=== PATIENT | female | born 1980 | race Caucasian/White ===

== ENCOUNTER → 2020-05-24 | Outpatient (CLI) | payer BC | LOC: SJCVCIMAG 08:20 | PROVIDERS: ATTEND Internal Medicine | DX: R00.2 Palpitations (principal); R00.0 Tachycardia, unspecified ==

== ENCOUNTER 2020-12-05 10:09 | Inpatient (IN) | payer BC, OTHER ==
[~2020-12-05] VITALS: Ht 165.1 cm; Wt 51.7 kg
[2020-12-05 10:14] VITALS: BP 129/86
[2020-12-05 10:35] LABS: URINE BILIRUBIN NEGATIVE (Negative); URINE BLOOD NEGATIVE (Negative); URINE CLARITY CLEAR; URINE COLOR YELLOW; URINE GLUCOSE-RANDOM* NEGATIVE (Negative); URINE KETONES NEGATIVE (Negative); URINE LEUKOCYTES-REFLEX TRACE (Negative); URINE NITRITE-REFLEX NEGATIVE (Negative); URINE PROTEIN (DIPSTICK) NEGATIVE (Negative); URINE SPECIFIC GRAVITY <= 1.005 (1.005-1.035); URINE UROBILINOGEN 0.2 E.U./dl (0.2-1.0)
[2020-12-05] MEDS ORDERED: PROTONIX40 M4 PO (10:55)
[2020-12-05] MEDS ORDERED: ALPRAZOLAM XR3 MG PO (10:57)
[2020-12-05] MEDS ORDERED: PLAQUENIL200 MG PO (10:57)
[2020-12-05 11:01] LABS: ABSOLUTE NEUTROPHILS 4.3 thou/uL (1.4-8.2); BASOPHILS 0.4 % (0.0-2.0); EOSINOPHILS 1.1 % (0.0-3.0); HEMATOCRIT 40.3 % (37.0-47.0); HEMOGLOBIN 13.8 gm/dL (12.0-15.0); LYMPHOCYTES 16.3 % (24.0-44.0); MCH 31.5 pg (26.0-34.0); MCHC 34.1 g/dL (28.0-37.0); MCV 92.2 fL (80.0-100.0); MONOCYTES 8.6 % (1.0-8.0); PLATELET COUNT 221 thou/uL (150-400); POLYS 73.6 % (36.0-66.0); RBC 4.37 mil/uL (4.20-5.00); RDW 12.4 % (10.5-14.5); WBC 5.8 thou/uL (4.0-11.0)
[2020-12-05 11:08] LABS: CALCIUM 8.6 mg/dL (8.5-10.1); CREATININE 0.7 mg/dL (0.6-1.0)
[2020-12-05 11:14] LABS: ALBUMIN 3.9 g/dL (3.4-5.0); TOTAL BILIRUBIN 0.5 mg/dL (0.2-1.0); TOTAL PROTEIN 6.7 g/dL (6.4-8.2)
[2020-12-05 17:08] VITALS: BP 108/66
[2020-12-05 17:20] VITALS: BP 111/67
[2020-12-05 18:00] VITALS: BP 106/69
--- NOTE | 2020-12-05 19:28 | NUR ---
PT ADMITED FROM ER. ADMISSION HX AND ASSESSMENT COMPLETED. VSS. NPO AFTER MIDNIGHT FOR POSSIBLE SURGERY IN AM.
[2020-12-05 20:10] VITALS: BP 106/67
[2020-12-06 04:41] LABS: HEMATOCRIT 35.6 % (37.0-47.0); MCH 30.9 pg (26.0-34.0); MCHC 32.9 g/dL (28.0-37.0); RBC 3.79 mil/uL (4.20-5.00); RDW 12.7 % (10.5-14.5); WBC 4.6 thou/uL (4.0-11.0)
[2020-12-06 04:43] LABS: HEMOGLOBIN 11.7 gm/dL (12.0-15.0)
[2020-12-06 05:00] VITALS: BP 106/62
[2020-12-06 05:00] LABS: CALCIUM 7.9 mg/dL (8.5-10.1); CREATININE 0.6 mg/dL (0.6-1.0)
--- NOTE | 2020-12-06 07:55 | NUR ---
NPO SINCE MIDNIGHT FOR A POSSIBLE SURGERY TODAY.UP ADLIB.PAIN WELL CONTROLLED WITH PAIN PILL.IVF INFUSING.POC CONTINUED.
[2020-12-06 12:18] VITALS: BP 90/46
--- NOTE | 2020-12-06 12:53 | NUR ---
Nutrition screening risk identified for possible 2-13 lb wt loss and decreased intake. Admit with abdominal pain, hemorrhagic ovarian cyst and cholecystitis. Had n/v few days prior admit. S/P surgical intervention 12/06 for left oopherectomy and lap anali. Will follow up for timely diet advance with tolerance. Low nutrition risk at this time
--- NOTE | 2020-12-06 18:22 | NUR ---
assumed care 0700. pt to suregery 0800. returned 1230 following lap anali w/L Oophorectomy. VSS stable following procedure. tolerating clear liquids well. desires to advance diet. progressing in nursing plan of care
[2020-12-06 19:13] VITALS: BP 108/62
[2020-12-07 02:26] VITALS: BP 108/62
--- NOTE | 2020-12-07 03:19 | NUR ---
A&OX4, ASSESSMENSTS CHARTED, PAIN MEDS GIVEN WITH PARTIAL RELIEF, LAB SITES AND INCISION SITES ITACT, NO BLEEDING, SLEEPING AT THIS TIME, NO NEEDS, TOLERATING DIET WELL, PROGRESSING WELL TOWARDS POC
[2020-12-07 05:32] VITALS: BP 101/63
--- NOTE | 2020-12-07 06:53 | O ---
[facility] [place] [address] [place] [address] OPERATIVE REPORT Name: KENAN ZARAGOZA Room #: 217-P ADM IN M.R.#: [id number] Admission: 12/05/20 Attend Phys: Mercy Hallman MD Discharge: Date of : 84 Report #: [id number] THIS REPORT FOR: cc: Jhonatan Leon MD, Mark S. MD Farris, Kari C. DO ~ DATE OF SERVICE: 12/06/2020 PREOPERATIVE DIAGNOSES: 1. Abdominal pain. 2. Cholecystitis. 3. Cystic left ovary. POSTOPERATIVE DIAGNOSES: 1. Abdominal pain. 2. Cholecystitis. 3. Cystic left ovary. 4. Torsion of left ovary. OPERATIVE PROCEDURE: Laparoscopic left oophorectomy. SURGEON: Dr. Bella Stern. ANESTHESIA: General. PATHOLOGY: Left ovary. COMPLICATIONS: None. DESCRIPTION OF PROCEDURE: The patient was taken to the operating room by Dr. True Santos due to abdominal pain and cholecystitis. It was noted that the patient has a cystic left ovary; therefore, it was planned that we would join him in the operating room to evaluate the left ovary. The abdomen was entered laparoscopically by Dr. Santos. Please see his dictation for details upon that. A survey of the patient's pelvis revealed an enlarged cystic left torsed ovary. The patient's next of kin an emergency contact, Samy Kincaid, was then called. It was recommended to Samy that a left oophorectomy be performed and verbal consent from Samy was obtained to perform a left oophorectomy. An incision was made in the left lower quadrant through her prior abdominoplasty excision with a scalpel. An 11 mm trocar was placed through this incision under direct visualization of the laparoscope and no insertional trauma was identified. The bowel was retracted cephalad and the left ovary was then grasped with an atraumatic grasper. It was retracted medially. The LigaSure device was then used to transect the infundibulopelvic ligament that was torsed [address] [address] OPERATIVE REPORT Name: MILAKENAN R Room #: 217-P [facility] IN ..#: [id number] Admission: 12/05/20 Attend Phys: Mercy Hallman MD Discharge: Date of : 84 Report #: [id number] and complete transection hemostasis was noted. The LigaSure was then removed from the patient's abdomen and Endopouch was then placed through the trocar and the left ovary was placed in the Endopouch. The Endopouch was then clamped with a curved hemostat. Curly was placed over the pedicle of the infundibulopelvic ligament by Dr. Santos and the case was handed back over to Dr. Santos. Please refer back to his dictation for the remainder of the case on the patient. The patient tolerated my portion of the procedure well and the case was handed back over to Dr. Santos. <ELECTRONICALLY SIGNED> By: Bella Stern DO 12/07/20 0653 1201 1245 Bella Stern DO /nt
--- NOTE | 2020-12-07 10:41 | NUR ---
ASSUMED CARE OF PT AT 0700 PT IS ALERT AND ORIENTED AND READY TO GO HOME
[2020-12-07 12:13] LABS: ABSOLUTE NEUTROPHILS 4.4 thou/uL (1.4-8.2); BASOPHILS 0.3 % (0.0-2.0); EOSINOPHILS 0.8 % (0.0-3.0); HEMATOCRIT 39.9 % (37.0-47.0); HEMOGLOBIN 13.2 gm/dL (12.0-15.0); MCH 30.9 pg (26.0-34.0); MCHC 33.1 g/dL (28.0-37.0); MCV 93.3 fL (80.0-100.0); MONOCYTES 8.2 % (1.0-8.0); PLATELET COUNT 235 thou/uL (150-400); POLYS 58.7 % (36.0-66.0); RBC 4.27 mil/uL (4.20-5.00); RDW 12.6 % (10.5-14.5); WBC 7.5 thou/uL (4.0-11.0)
[2020-12-07 12:32] LABS: ALBUMIN 3.8 g/dL (3.4-5.0); CALCIUM 9.1 mg/dL (8.5-10.1); CREATININE 0.8 mg/dL (0.6-1.0); POTASSIUM 3.8 mmol/L (3.5-5.1); TOTAL BILIRUBIN 0.5 mg/dL (0.2-1.0); TOTAL PROTEIN 6.7 g/dL (6.4-8.2)
[2020-12-07] MEDS ORDERED: MIRALAX17 GM PO (15:09)
[2020-12-07] MEDS ORDERED: TYLENOL325 MG PO (15:09)
[2020-12-07] MEDS ORDERED: OXYCODONE HCL 55 MG PO (15:09)
[2020-12-07] MEDS ORDERED: IBUPROFEN 200200 M1 PO (15:09)
[2020-12-07] MEDS ORDERED: STIMULANT LAXA1 EACH PO (15:09)
[2020-12-07 16:00] VITALS: BP 103/63
[2020-12-07 19:41] VITALS: BP 100/63
[2020-12-08 07:36] VITALS: BP 101/65
--- NOTE | 2020-12-08 08:38 | NUR ---
Pt. rested quietly at intervals during the night when checked on during frequent rounds. She c/o abdominal pain and pain meds given (see emar) with some relief noted. Up ad quentin in her room. Lapsites times 4 to abdomen are dry and intact.
--- NOTE | 2020-12-08 08:47 | NUR ---
ASSUMED PT CARE AT 0700. PT SITTING UP IN BED, PT STATES SHE HAS MILD PAIN. PT ASSESSMENT PERFORMED AND CHARTED. VSS. WILL CONTINUE TO MONITOR.
[2020-12-08 10:21] LABS: URINE BILIRUBIN NEGATIVE (Negative); URINE BLOOD NEGATIVE (Negative); URINE CLARITY CLEAR; URINE COLOR YELLOW; URINE GLUCOSE-RANDOM* NEGATIVE (Negative); URINE KETONES NEGATIVE (Negative); URINE LEUKOCYTES-REFLEX NEGATIVE (Negative); URINE NITRITE-REFLEX NEGATIVE (Negative); URINE PROTEIN (DIPSTICK) NEGATIVE (Negative); URINE SPECIFIC GRAVITY >= 1.030 (1.005-1.035); URINE UROBILINOGEN 0.2 E.U./dl (0.2-1.0)
[2020-12-08 10:58] VITALS: BP 101/65
--- NOTE | 2020-12-08 16:06 | PATH ---
[facility] [place] [address] PATHOLOGY RPT PROCEDURE Name: KENAN ZARAGOZA Room #: 459-P DIS IN M.R.#: [id number] Admission: 12/05/20 Date of : 84 Discharge: 12/08/20 Report #: [id number] Path Case #: [id number] [facility] Accession Number: [id number] . 01 Material submitted: . PART A: gallbladder - GALLBLADDER PART B: ovary - LEFT OVARY. Modifiers: left . 01 Clinical history: . HEMORRHAGIC OVARIAN CYST LAPAROSCOPIC CHOLECYSTECTOMY WITH G LAPAROSCOPIC OOPHORECTOMY CHOLELITHIASIS CHOLECYSTITIS, TORSION OF LEFT OVARY . 02 Diagnosis: A. Gallbladder, cholecystectomy: - Mild chronic cholecystitis. - Cholelithiasis. . B. Ovary, left ovary, laparoscopic oophorectomy: - 5.7 cm hemorrhagic corpus luteal cyst. - Background ovarian parenchyma showing physiologic changes. - Negative for malignancy. . (IUV:chain hooker; 12/08/2020) MBR 12/08/2020 1240 Local . 02 Electronically signed: . Kaycee Chandra MD, Pathologist NPI- [id number] . 01 Gross description: . A. Fixative: Formalin Labeled: Gallbladder Specimen received: Intact gallbladder Dimensions: 9.7 x 3.3 x 3.2 cm Serosa: Blue-grade Mucosa: Velvety, bile-stained Average wall thickness: 0.1 cm Calculi: Present displaying a dark yellow and multifaceted appearance Abnormalities: None identified . Skein Yarn Dyer body, fundus, and the cystic duct margin in A1. . B. The specimen is received in formalin, labeled "Kenan Zaragoza, left ovary". Received is a 27 g clinically left adnexal specimen consisting of [facility] [address] [address] PATHOLOGY RPT PROCEDURE Name: KENAN ZARAGOZA Desire Room #: 459-P DIS IN M.R.#: [id number] Admission: 12/05/20 Date of : 84 Discharge: 12/08/20 Report #: [id number] Path Case #: [id number] a possible segment of non-fimbriated fallopian tube measuring 2.0 cm in length by 0.6 cm in diameter attached to a 5.7 x 4.3 x 2.4 cm ruptured, hemorrhagic ovary. Sectioning through the possible fallopian tube reveals paz-hagen cut surfaces with a possible lumen identified. Sectioning through the ovary reveals predominantly hemorrhagic cut surfaces with a single unilocular cystic structure identified measuring 3.5 cm that has previously ruptured. The cyst wall is hemorrhagic and ragged in appearance. The remaining cut surfaces display additional cystic structures ranging in size from 0.3-0.5 cm, as well as normal ovarian stroma. The entire possible fallopian tube is submitted in cassette B1. Skein Yarn Dyer sections of the ovary are submitted in cassettes B1 through B5. (CAA; 12/07/2020) QA/QAC 12/07/2020 1131 Local . 02 Pathologist provided ICD-10: K80.10, N83.12 . 02 CPT . 334876, [id number] Specimen Comment: A courtesy copy of this report has been sent to [phone], [phone] Specimen Comment: [phone], , Specimen Comment: Report sent to DR ROBERTSON,DR REED,DR LANDEROS / DR ANTONIO Performed at: [address] [facility], [place], [place] [id number] MD Jaycob Patino MD Phone: [phone] Performed at: [address] [facility] [id number] MD Kaycee Chandra MD Phone: [phone]
== END 2020-12-08 14:07 | disposition home or self-care (01) | DRG 742 ==
LOC: ER 10:09 → 2N 16:12 → EROBS 16:12 → 2N 17:34 → 4W 12-07 18:44
PROVIDERS: Emergency Medicine; Internal Medicine; ADMIT Internal Medicine; ATTEND Internal Medicine
PROC: 0FT44ZZ Resection of Gallbladder, Percutaneous Endoscopic Approach (ICD-10-PCS; principal; 2020-12-06)
PROC: BF121ZZ Fluoroscopy of Gallbladder using Low Osmolar Contrast (ICD-10-PCS; principal; 2020-12-06)
PROC: 0UT14ZZ Resection of Left Ovary, Percutaneous Endoscopic Approach (ICD-10-PCS; principal; 2020-12-06)
DX: N83.512 Torsion of left ovary and ovarian pedicle (principal); K80.10 Calculus of gallbladder with chronic cholecystitis without obstruction; K21.9 Gastro-esophageal reflux disease without esophagitis; N83.209 Unspecified ovarian cyst, unspecified side; F41.9 Anxiety disorder, unspecified; M32.9 Systemic lupus erythematosus, unspecified; Z20.822 Contact with and (suspected) exposure to COVID-19; Z90.710 Acquired absence of both cervix and uterus
CPT/HCPCS: 10047; 10797; 50010; 50101; 50411; 50555; 50558; 50900; 51489; 52265; 52266; 52287; 53307; 53310; 53312; 54022; 54118; 56462; 56525; 56526; 56674; 58574; 58637; 62110; 62900; 70005